=== PATIENT | female | born 1975 | race Caucasian/White ===

== ENCOUNTER 2023-12-31 00:44 | Emergency (ER) | payer SELFPAY ==
[~2023-12-31] VITALS: Ht 165.1 cm; Wt 71.0 kg
[2023-12-31 01:17] VITALS: O2SAT 99
[2023-12-31] MEDS: SODIUM CHLORIDE 0.9% 1,000 ML IV ONE ×2 (02:00→04:49)
[2023-12-31] MEDS ORDERED: DIPHENHYDRAMINE 50MG/ML VIAL IV ONE (02:00)
[2023-12-31] MEDS ORDERED: METOCLOPRAMIDE HCL 10MG/2ML VIAL IV ONE (02:00)
[2023-12-31 02:55] LABS: EOSINOPHILS % 2.4 % (0.0-5.0); HEMATOCRIT. 37.6 % (36.0-48.0); LYMPHOCYTES % 22.7 % (20.0-50.0); MEAN CORPUSCULAR HEMOGLOBIN 29.6 pg (28.0-32.0); MEAN CORPUSCULAR HGB CONC 34.6 g/dL (31.0-37.0); MEAN CORPUSCULAR VOLUME 85.5 fL (81.0-99.0); MONOCYTES % 7.8 % (2.0-8.0); NEUTROPHILS % 66.1 % (40.0-76.0); PLATELET 283 x1000/uL (130-400); RED CELL DISTRIBUTION WIDTH 13.1 % (11.6-14.6); WHITE BLOOD COUNT 7.2 x1000/uL (4.5-11.0)
[2023-12-31 03:04] LABS: CHLORIDE 94 mEq/L (98-107); POTASSIUM 3.8 mEq/L (3.5-5.1); SODIUM 126 mEq/L (136-145)
[2023-12-31 03:05] LABS: CARBON DIOXIDE 24 mEq/L (21-32)
[2023-12-31 03:06] LABS: CALCIUM 8.6 mg/dL (8.7-10.4)
[2023-12-31 03:10] LABS: CREATININE 0.6 mg/dL (0.6-1.0); GLUCOSE 100 mg/dL (70-105); UREA NITROGEN BLOOD 8 mg/dL (9-23)
[2023-12-31 03:13] LABS: ETHANOL BLOOD < 10 mg/dL (<10)
[2023-12-31 03:37] LABS: HCG SCREEN NEGATIVE
[2023-12-31] MEDS: ONDANSETRON HCL 4MG/2ML INJ IV STA (04:48)
[2023-12-31] MEDS: METOCLOPRAMIDE HCL 10MG/2ML VIAL IV NR (04:48)
[2023-12-31] MEDS: DIPHENHYDRAMINE 50MG/ML VIAL IV NR (04:49)
[2023-12-31 07:15] VITALS: BP 119/61; PULSE 128; RESP 18; TEMP 98.2
[2023-12-31] MEDS ORDERED: PROC5TAB55 MT (09:02)
[2023-12-31] MEDS ORDERED: DIPH-907 MT (09:03)
== END 2023-12-31 07:21 | disposition home or self-care (01) ==
LOC: ER 00:44
DX: R41.82 Altered mental status, unspecified (principal); R42 Dizziness and giddiness
CPT/HCPCS: 80048; 80320; 84703; 85025; 36415; 71045; 70450; 96374; 96375; 99285; J1200; J2765; J2405; J7030; Z7610; G0480

== ENCOUNTER 2023-12-31 08:36 | Emergency (ER) | payer SELFPAY ==
[~2023-12-31] VITALS: Ht 172.7 cm; Wt 81.0 kg
[2023-12-31 08:49] VITALS: O2SAT 99
[2023-12-31] MEDS ORDERED: PROC5TAB55 MT (09:02)
[2023-12-31] MEDS ORDERED: DIPH-907 MT (09:03)
[2023-12-31 09:45] VITALS: BP 135/82; PULSE 91; RESP 18; TEMP 98.7
== END 2023-12-31 10:01 | disposition home or self-care (01) ==
LOC: ER 08:36
DX: R51.9 Headache, unspecified (principal)
CPT/HCPCS: 99281